=== PATIENT | female | born 1975 | race African-American/Black ===

== ENCOUNTER 2018-04-06 10:27 | Emergency (ER) | payer OTHER ==
[~2018-04-06] VITALS: Ht 172.7 cm; Wt 70.0 kg
[2018-04-06 10:30] VITALS: BP 158/98; PULSE 107; RESP 24; Ht 172.7 cm; Wt 70.0 kg
[2018-04-06] MEDS ORDERED: AMOX1TAB10 PO (11:06)
[2018-04-06] MEDS ORDERED: MUPI22OI2 TOP (11:06)
--- NOTE | 2018-04-06 15:10 | ERD ---
ER Documentation Chief Complaint Chief Complaint MOUTH RASHES HPI 43-year-old female presenting with rash around mouth times 1 month. Patient is currently living in a [facility] in [place]. She has had this rash for about a month and has not use any medications. She is also complaining of some pain to her right teeth. She has pain when she bites down. Denies any fevers. Denies medical problems. NKDA. Surgical history denies. Social history denies. ROS All systems reviewed and are negative except as per history of present illness. Medications Home Meds Active Scripts Amoxicillin/Potassium Clav (Amox-Clav 875-125 mg Tablet) 875-125 mg Tab, 1 TAB PO BID for 7 Days, #14 TAB Prov:DAPHNIE MOSQUERA PA-C 04/06/18 Mupirocin* (Bactroban*) 2% -22 Gram Oint...g., 1 APPLIC TOP BID for 7 Days, EA Prov:DAPHNIE MOSQEURA PA-C 04/06/18 Allergies Allergies: Coded Allergies: No Known Allergy (Verified , 02/27/12) PMhx/Soc History of Surgery: Yes (FINGER SURGERY) Anesthesia Reaction: No Hx Neurological Disorder: No Hx Respiratory Disorders: No Hx Cardiac Disorders: No Hx Psychiatric Problems: No Hx Miscellaneous Medical Probl: Yes (+ hiv) Hx Alcohol Use: No Hx Substance Use: No Hx Tobacco Use: Yes (2-3 cigs per day) Smoking Status: Never smoker FmHx Family History: No diabetes, No coronary disease, No other Physical Exam Vitals Vital Signs Date Temp Pulse Resp B/P (MAP) Pulse Ox O2 O2 Flow FiO2 Time Delivery Rate 04/06/18 98.1 107 24 158/98 97 10:30 (118) Physical Exam GENERAL: The patient is well-appearing, well-nourished, in no acute distress HEENT: Atraumatic. Conjunctivae are pink. Pupils equal, round, and reactive to light. There is no scleral icterus. Tympanic membranes clear bilaterally. Oropharynx clear. Dentition noted throughout and pain with biting down on tongue depressor. CHEST: Clear to auscultation bilaterally. There are no rales, wheezes or rhonchi. HEART: Regular rate and rhythm. No murmurs, clicks, rubs or gallops. SKIN: Honeycomb white crusting rash around mouth with vesicles. Procedures/MDM ER course: Social work spoke with patient regarding HIV clinic. It was d etermined the patient is HIV positive and not currently taking medications. DM: 43-year-old female presenting with findings consistent with impetigo and dental abscess. Patient is discharged with supportive medications. Patient is recommended to follow-up with HIV clinic for further evaluation and blood work. Patient's vitals are stable. Patient is discharged stricter precautions and told to follow-up with primary care. Patient is told if symptoms change or worsen to return immediately to the ER. All questions answered at discharge Departure Diagnosis: Primary Impression: Impetigo Condition: Stable Patient Instructions: Impetigo Referrals: [facility] YOU HAVE RECEIVED A MEDICAL SCREENING EXAM AND THE RESULTS INDICATE THAT YOU DO NOT HAVE A CONDITION THAT REQUIRES URGENT TREATMENT IN THE EMERGENCY DEPARTMENT. FURTHER EVALUATION AND TREATMENT OF YOUR CONDITION CAN WAIT UNTIL YOU ARE SEEN IN YOUR DOCTORS OFFICE WITHIN THE NEXT 1-2 DAYS. IT IS YOUR RESPONSIBILITY TO MAKE AN APPOINTMENT FOR FOLOW-UP CARE. IF YOU HAVE A PRIMARY DOCTOR --you should call your primary doctor and schedule and appointment IF YOU DO NOT HAVE A PRIMARY DOCTOR YOU CAN CALL OUR PHYSICIAN REFERRAL HOTLINE AT . IF YOU CAN NOT AFFORD TO SEE A PHYSICIAN YOU CAN CHOSE FROM THE FOLLOWING [facility] INSTITUTIONS: [facility] [id number] [place] [address] [facility] [address] [place] [address] [facility] [address] [place] [address] Additional Instructions: FOLLOW UP WITH YOUR PRIMARY CARE PHYSICIAN TOMORROW.Return to this facility if you are not improving as expected. DAPHNIE MOSQUERA PA-C Apr 06, 2018 15:10
== END 2018-04-06 11:31 | disposition home or self-care (01) ==
LOC: FTE 10:27
DX: L01.00 Impetigo, unspecified (principal); Z21 Asymptomatic human immunodeficiency virus [HIV] infection status
CPT/HCPCS: 99283